=== PATIENT | female | born 1985 | race Caucasian/White ===

== ENCOUNTER 2018-02-07 11:17 | Emergency (ER) | payer BC ==
[2018-02-07 11:29] VITALS: BP 141/86
--- NOTE | 2018-02-07 12:18 | EDM.PDOC ---
ED HPI GENERAL MEDICAL PROBLEM - General Chief Complaint: General Stated Complaint: RASH ON BACK Time Seen by Provider: 02/07/18 11:50 Source of Information: Reports: Patient History Limitations: Reports: No Limitations - History of Present Illness INITIAL COMMENTS - FREE TEXT/NARRATIVE: Patient is a 33-year-old diabetic well known to myself seen with chief complaint of mid back pain at this time she noticed a red area that was oozing pus was seen earlier in the week in the clinic and placed on clindamycin today she has increased pain pressure in the area area was examined revealed an abscess patient is status post amputation below left knee Onset: Gradual Duration: Day(s): (Past 6 days), Getting Worse Location: Reports: Back Quality: Reports: Stabbing, Throbbing Severity: Severe Improves with: Reports: None Worsens with: Reports: None Context: Reports: Other (Illness) Associated Symptoms: Reports: No Other Symptoms Treatments END USER SUPPORT SPECIALIST: Reports: Other (see below) Other Treatments END USER SUPPORT SPECIALIST: hydrocodone 2 tabs at 0500 today Right Back Pain Score (Numeric/FACES): 6 - Related Data Allergies Allergy/AdvReac Type Severity Reaction Status Date / Time No Known Allergies Allergy Verified 02/07/18 11:29 Home Meds: Home Meds Cephalexin [Keflex] 500 mg PO Q6H 10 Days #28 capsule 02/07/18 [Rx] Clindamycin HCl [Cleocin] 300 mg PO TID 02/07/18 [History] Insulin Aspart [NovoLOG] 1,000 unit .XX ASDIRECTED 02/07/18 [History] Levothyroxine [Synthroid] 50 mcg PO DAILY 02/07/18 [History] Lisinopril [Prinivil] 10 mg PO DAILY 02/07/18 [History] Lisinopril/Hydrochlorothiazide [Lisinopril-Hctz 20-25 mg Tab] 1 each PO DAILY [History] metFORMIN [Glucophage XR] 750 mg PO BID 02/07/18 [History] Past Medical History HEENT History: Reports: Impaired Vision Other HEENT History: tooth abscess Cardiovascular History: Reports: Hypertension Neurological History: Reports: Migraines Endocrine/Metabolic History: Reports: Diabetes, Type I, Hypothyroidism, Obesity/ BMI 30+ Dermatologic History: Reports: Other (See Below) Other Dermatologic History: very sensitive skin - Past Surgical History HEENT Surgical History: Reports: Tonsillectomy Other Musculoskeletal Surgeries/Procedures:: left lower leg amputee Social & Family History - Tobacco Use Smoking Status *Q: Former Smoker Years of Tobacco use: 12 Packs/Tins Daily: 1 Used Tobacco, but Quit: Yes Month/Year Tobacco Last Used: 1 Second Hand Smoke Exposure: No - Caffeine Use Caffeine Use: Reports: Soda - Recreational Drug Use Recreational Drug Use: No ED ROS GENERAL - Review of Systems Review Of Systems: See Below Constitutional: Reports: Fever, Chills, Fatigue HEENT: Reports: No Symptoms Respiratory: Reports: No Symptoms Cardiovascular: Reports: No Symptoms Endocrine: Reports: No Symptoms GI/Abdominal: Reports: Abdominal Pain, Decreased Appetite, Nausea. Denies: Anorexia, Constipation, Diarrhea : Reports: No Symptoms Musculoskeletal: Reports: No Symptoms Skin: Reports: Other (Mid back abscess) Neurological: Reports: No Symptoms Psychiatric: Reports: No Symptoms Hematologic/Lymphatic: Reports: No Symptoms ED EXAM, GENERAL - Physical Exam Exam: See Below Exam Limited By: No Limitations General Appearance: Mild Distress Ears: Normal External Exam, Normal Canal, Hearing Grossly Normal, Normal TMs Ear Exam: Bilateral Ear: Auricle Normal, Canal Normal, TM normal Nose: Normal Inspection, Normal Mucosa, No Blood Throat/Mouth: Normal Inspection, Normal Lips, Normal Teeth, Normal Gums, Normal Oropharynx, Normal Voice, No Airway Compromise Head: Atraumatic, Normocephalic Neck: Normal Inspection, Supple, Non-Tender, Full Range of Motion Respiratory/Chest: No Respiratory Distress, Lungs Clear, Normal Breath Sounds, No Accessory Muscle Use, Chest Non-Tender Cardiovascular: Normal Peripheral Pulses, Regular Rate, Rhythm, No Edema, No Gallop, No JVD, No Murmur, No Rub GI/Abdominal: Normal Bowel Sounds, Soft, Non-Tender, No Organomegaly, No Distention, No Abnormal Bruit, No Mass (Female) Exam: Deferred Rectal (Female) Exam: Deferred Back Exam: Other (Abscess mid back right side approximately 8 cm round) Extremities: Normal Inspection, Normal Range of Motion, Non-Tender, Normal Capillary Refill, No Pedal Edema Neurological: Alert, Oriented, CN II-XII Intact, Normal Cognition, Normal Gait, Normal Reflexes, No Motor/Sensory Deficits Psychiatric: Normal Affect, Normal Mood ED GENERAL MEDICAL PROCEDURES - Additional/Other Procedure(s) Other (Free Text) Procedure(s): Procedure incision and drainage Anesthesia 2% lidocaine Estimated blood loss less than 10 mL Wound packed with 4 x 4 Patient is a 33-year-old diabetic who came in with a large abscess on her left mid back patient complains of severe pain, pain 8-10 out of 10 the abscesses was examined and noted to be red and under significant amount pressure at this time it was decided to I&D the abscess. Area was prepped and draped using hexedine oral form 2% lidocaine was infiltrated around the abscess and into the abscess using a 15 blade the abscess was opened and drained large amounts of pus was relieved cultures obtained and wound was irrigated with saline after the wound was irrigated with saline and cleaned with went ahead and packed in with an open 4 x 4 at this time we will dress the wound with 4 x 4 and ABDs patient will be sent home she will be seen again tomorrow in the ER for redressing and packing Course - Vital Signs Last Recorded V/S: Last Vital Signs Temp 98.9 F 02/07/18 11:18 Pulse 120 H 02/07/18 11:18 Resp 16 02/07/18 11:18 BP 141/86 H 02/07/18 11:18 Pulse Ox 96 02/07/18 11:18 - Orders/Labs/Meds Labs: Laboratory Tests 02/07/18 02/07/18 Range/Units 12:50 12:50 WBC 11.9 H (4.0-10.2) K/uL RBC 5.18 H (3.77-5.09) M/uL Hgb 15.5 (11.7-15.5) g/dL Hct 45.2 (34.0-46.0) % MCV 87.3 (84.0-98.0) fL MCH 29.9 (28.2-33.3) pg MCHC 34.3 (31.7-36.0) g/dL RDW 12.6 (11.2-14.1) % Plt Count 195 (150-350) K/uL Neut % (Auto) 71.0 (45.0-80.0) % Lymph % (Auto) 17.2 (10.0-50.0) % Smith % (Auto) 9.2 (2.0-14.0) % Eos % (Auto) 2.4 (0.0-5.0) % Baso % (Auto) 0.2 (0.0-2.0) % Neut # (Auto) 8.44 H (1.40-7.00) K/uL Lymph # (Auto) 2.05 (0.50-3.50) K/uL Smith # (Auto) 1.10 H (0.00-1.00) K/uL Eos # (Auto) 0.29 (0.00-0.50) K/uL Baso # (Auto) 0.02 (0.00-0.20) K/uL Sodium 133 L (136-145) mmol/L Potassium 4.7 (3.5-5.1) mmol/L Chloride 98 (98-107) mmol/L Carbon Dioxide 25.1 (21.0-32.0) mmol/L BUN 19 H (7-18) mg/dL Creatinine 0.86 (0.51-1.17) mg/dL Est Cr Clr Drug Dosing 108.68 mL/min Estimated GFR (MDRD) > 60 mL/min Glucose 316 H* (74-106) mg/dL Calcium 9.3 (8.5-10.1) mg/dL Meds: Medications Discontinued Medications Generic Name Dose Route Start Last Admin Trade Name Freq PRN Reason Stop Dose Admin Cefazolin Sodium 2 gm 02/07/18 13:52 02/07/18 14:01 Ancef IVPUSH 02/07/18 13:53 2 gm ONETIME ONE Administration Fentanyl 100 mcg 02/07/18 12:27 02/07/18 13:15 Sublimaze IVPUSH 02/07/18 12:28 100 mcg ONETIME ONE Administration Lidocaine 20 ml 02/07/18 12:29 02/07/18 13:58 Xylocaine-Mpf 2% INJECT 02/07/18 12:30 10 ml ONETIME ONE Administration Ondansetron HCl 4 mg 02/07/18 14:13 02/07/18 14:18 Zofran Odt PO 02/07/18 14:14 4 mg ONETIME ONE Administration Sodium Chloride 10 ml 02/07/18 14:02 02/07/18 14:03 Saline Flush FLUSH 10 ml ASDIRECTED PRN Administration Keep Vein Open Departure - Departure Time of Disposition: 14:02 Disposition: Home, Self-Care 01 Clinical Impression: Abscess or cellulitis of back - Discharge Information Prescriptions: Cephalexin [Keflex] 500 mg PO Q6H 10 Days #28 capsule Instructions: Skin Abscess, Cellulitis, Adult Referrals: Prateek Angulo MD [Emergency Provider] - Forms: ED Department Discharge Additional Instructions: Return tomorrow 02/08/18 for dressing change of back. Continue clindamycin as ordered. Keflex 500 mg orally 4 times a day. Return sooner if conditions worsen. Care Plan Goals: ED HPI GENERAL MEDICAL PROBLEM - General Chief Complaint: General Stated Complaint: RASH ON BACK Time Seen by Provider: 02/07/18 11:50 Source of Information: Reports: Patient History Limitations: Reports: No Limitations - History of Present Illness INITIAL COMMENTS - FREE TEXT/NARRATIVE: Patient is a 33-year-old diabetic well known to myself seen with chief complaint of mid back pain at this time she noticed a red area that was oozing pus was seen earlier in the week in the clinic and placed on clindamycin today she has increased pain pressure in the area area was examined revealed an abscess patient is status post amputation below left knee Onset: Gradual Duration: Day(s): (Past 6 days), Getting Worse Location: Reports: Back Quality: Reports: Stabbing, Throbbing Severity: Severe Improves with: Reports: None Worsens with: Reports: None Context: Reports: Other (Illness) Associated Symptoms: Reports: No Other Symptoms Treatments END USER SUPPORT SPECIALIST: Reports: Other (see below) Other Treatments END USER SUPPORT SPECIALIST: hydrocodone 2 tabs at 0500 today Right Back Pain Score (Numeric/FACES): 6 - Related Data Allergies Allergy/AdvReac Type Severity Reaction Status Date / Time No Known Allergies Allergy Verified 02/07/18 11:29 Home Meds: Home Meds Clindamycin HCl [Cleocin] 300 mg PO TID 02/07/18 [History] Insulin Aspart [NovoLOG] 1,000 unit .XX ASDIRECTED 02/07/18 [History] Levothyroxine [Synthroid] 50 mcg PO DAILY 02/07/18 [History] Lisinopril [Prinivil] 10 mg PO DAILY 02/07/18 [History] Lisinopril/Hydrochlorothiazide [Lisinopril-Hctz 20-25 mg Tab] 1 each PO DAILY [History] metFORMIN [Glucophage XR] 750 mg PO BID 02/07/18 [History] Past Medical History HEENT History: Reports: Impaired Vision Other HEENT History: tooth abscess Cardiovascular History: Reports: Hypertension Neurological History: Reports: Migraines Endocrine/Metabolic History: Reports: Diabetes, Type I, Hypothyroidism, Obesity/ BMI 30+ Dermatologic History: Reports: Other (See Below) Other Dermatologic History: very sensitive skin - Past Surgical History HEENT Surgical History: Reports: Tonsillectomy Other Musculoskeletal Surgeries/Procedures:: left lower leg amputee Social & Family History - Tobacco Use Smoking Status *Q: Former Smoker Years of Tobacco use: 12 Packs/Tins Daily: 1 Used Tobacco, but Quit: Yes Month/Year Tobacco Last Used: 1 Second Hand Smoke Exposure: No - Caffeine Use Caffeine Use: Reports: Soda - Recreational Drug Use Recreational Drug Use: No ED ROS GENERAL - Review of Systems Review Of Systems: See Below Constitutional: Reports: Fever, Chills, Fatigue HEENT: Reports: No Symptoms Respiratory: Reports: No Symptoms Cardiovascular: Reports: No Symptoms Endocrine: Reports: No Symptoms GI/Abdominal: Reports: Abdominal Pain, Decreased Appetite, Nausea. Denies: Anorexia, Constipation, Diarrhea : Reports: No Symptoms Musculoskeletal: Reports: No Symptoms Skin: Reports: Other (Mid back abscess) Neurological: Reports: No Symptoms Psychiatric: Reports: No Symptoms Hematologic/Lymphatic: Reports: No Symptoms ED EXAM, GENERAL - Physical Exam Exam Limited By: No Limitations General Appearance: Mild Distress Ears: Normal External Exam, Normal Canal, Hearing Grossly Normal, Normal TMs Ear Exam: Bilateral Ear: Auricle Normal, Canal Normal, TM normal Nose: Normal Inspection, Normal Mucosa, No Blood Throat/Mouth: Normal Inspection, Normal Lips, Normal Teeth, Normal Gums, Normal Oropharynx, Normal Voice, No Airway Compromise Head: Atraumatic, Normocephalic Neck: Normal Inspection, Supple, Non-Tender, Full Range of Motion Respiratory/Chest: No Respiratory Distress, Lungs Clear, Normal Breath Sounds, No Accessory Muscle Use, Chest Non-Tender Cardiovascular: Normal Peripheral Pulses, Regular Rate, Rhythm, No Edema, No Gallop, No JVD, No Murmur, No Rub GI/Abdominal: Normal Bowel Sounds, Soft, Non-Tender, No Organomegaly, No Distention, No Abnormal Bruit, No Mass (Female) Exam: Deferred Rectal (Female) Exam: Normal Exam, Normal Rectal Tone Back Exam: Other (Abscess mid back right side approximately 8 cm round) Extremities: Normal Inspection, Normal Range of Motion, Non-Tender, Normal Capillary Refill, No Pedal Edema Neurological: Alert, Oriented, CN II-XII Intact, Normal Cognition, Normal Gait, Normal Reflexes, No Motor/Sensory Deficits Psychiatric: Normal Affect, Normal Mood Course - Vital Signs Last Recorded V/S: Last Vital Signs Temp 98.9 F 02/07/18 11:18 Pulse 120 H 02/07/18 11:18 Resp 16 02/07/18 11:18 BP 141/86 H 02/07/18 11:18 Pulse Ox 96 02/07/18 11:18 - Orders/Labs/Meds Orders: Active Orders 24 hr Category Date Time Status BASIC METABOLIC PANEL,BMP [CHEM] Stat Lab 02/07/18 12:28 Ordered CULTURE WOUND [RM] Stat Lab 02/07/18 12:26 Ordered Labs: Laboratory Tests 02/07/18 Range/Units 12:50 WBC 11.9 H (4.0-10.2) K/uL RBC 5.18 H (3.77-5.09) M/uL Hgb 15.5 (11.7-15.5) g/dL Hct 45.2 (34.0-46.0) % MCV 87.3 (84.0-98.0) fL MCH 29.9 (28.2-33.3) pg MCHC 34.3 (31.7-36.0) g/dL RDW 12.6 (11.2-14.1) % Plt Count 195 (150-350) K/uL Neut % (Auto) 71.0 (45.0-80.0) % Lymph % (Auto) 17.2 (10.0-50.0) % Smith % (Auto) 9.2 (2.0-14.0) % Eos % (Auto) 2.4 (0.0-5.0) % Baso % (Auto) 0.2 (0.0-2.0) % Neut # (Auto) 8.44 H (1.40-7.00) K/uL Lymph # (Auto) 2.05 (0.50-3.50) K/uL Smith # (Auto) 1.10 H (0.00-1.00) K/uL Eos # (Auto) 0.29 (0.00-0.50) K/uL Baso # (Auto) 0.02 (0.00-0.20) K/uL Meds: Medications Discontinued Medications Generic Name Dose Route Start Last Admin Trade Name Freq PRN Reason Stop Dose Admin Fentanyl 100 mcg 02/07/18 12:27 Sublimaze IVPUSH 02/07/18 12:28 ONETIME ONE Lidocaine 20 ml 02/07/18 12:29 Xylocaine-Mpf 2% INJECT 02/07/18 12:30 ONETIME ONE Departure - Departure Clinical Impression: Abscess or cellulitis of back - Discharge Information Referrals: Prateek Angulo MD [Primary Care Provider] - Forms: ED Department Discharge - My Orders Last 24 Hours: My Active Orders 02/07/18 12:26 CULTURE WOUND [RM] Stat 02/07/18 12:28 BASIC METABOLIC PANEL,BMP [CHEM] Stat - Assessment/Plan Last 24 Hours: My Active Orders 02/07/18 12:26 CULTURE WOUND [RM] Stat 02/07/18 12:28 BASIC METABOLIC PANEL,BMP [CHEM] Stat I&D of abscess with packing
[2018-02-07] MEDS ORDERED: fentaNYL 100 MCG/2 ML SDV IVPUSH ONE (12:27)
[2018-02-07] MEDS ORDERED: Lidocaine 2% 5 ML SDV INJECT ONE (12:29)
[2018-02-07 13:12] LABS: CHLORIDE,CL 98 mmol/L (98-107); SODIUM,NA 133 mmol/L (136-145)
[2018-02-07] MEDS ORDERED: ceFAZolin 1 GM Vial IVPUSH ONE (13:52)
[2018-02-07] MEDS ORDERED: Lidocaine 2% 5 ML SDV ONE (13:58)
[2018-02-07] MEDS ORDERED: Sodium Chloride 0.9% 10 ML Syringe FLUSH PRN (14:02)
[2018-02-07] MEDS ORDERED: Ondansetron 4 MG Tab.DIS PO ONE (14:13)
== END 2018-02-07 14:30 | disposition home or self-care (01) ==
LOC: LL.ED 11:17
DX: L02.212 Cutaneous abscess of back [any part, except buttock and flank] (principal); E10.9 Type 1 diabetes mellitus without complications; E03.9 Hypothyroidism, unspecified; I10 Essential (primary) hypertension; Z87.891 Personal history of nicotine dependence
CPT/HCPCS: 10060; 36415; 80048; 85025; 87070; 87077; 87186; 96374; 96375; 99283; A9270; J0690; J3010; J7050

== ENCOUNTER 2019-06-18 20:34 | Emergency (ER) | payer BC, MEDICARE ==
--- NOTE | 2019-06-18 20:44 | EDM.PDOC ---
ED HPI GENERAL MEDICAL PROBLEM - General Chief Complaint: ENT Problem Stated Complaint: vision changes Time Seen by Provider: 06/18/19 20:35 Source of Information: Reports: Patient, Old Records ([facility] EMR. No paper hospital chart available.) History Limitations: Reports: No Limitations - History of Present Illness INITIAL COMMENTS - FREE TEXT/NARRATIVE: She drove herself to the emergency room via private automobile for evaluation of progressive left eye visual changes since about 10 AM this morning. Note the patient began experiencing some left eye floaters with known previous history of diabetic retinopathy without previous laser treatments. During the course of the day the floaters to increase in frequency with sudden onset of ear left eye vision loss at about 18:00 hours this evening. No history of recent headaches, visual changes, diplopia, change in mental status, or other change in neurological status. The patient denies any chest pain/pressure, heart flutter, dizziness, orthostasis, orthopnea, diaphoresis, paresthesias, recent decreased exercise tolerance, or any other anginal-type symptoms. No recent history of abdominal pain, heartburn, nausea, diarrhea, melena, gross hematochezia, or any food intolerance, including fatty foods, etc.. She is currently being treated for bronchitis and sinusitis and has been compliant with her antibiotic therapy and inhalers. She does have a persistent mild nonproductive cough with no significant dyspnea, distress, etc. and symptoms much improved with only 3 days remaining of her antibiotic therapy. She denies any eye pain or discomfort. Her vision apparently worsened suddenly after a coughing episode. Onset: Today, Sudden, Other (As above) Onset Date: 06/18/19 Onset Time: 18:00 Duration: Getting Worse Location: Reports: Other (No pain) Severity: Severe Improves with: Reports: None Worsens with: Reports: None Context: Reports: Other (As above). Denies: Sick Contact, Trauma Associated Symptoms: Reports: Cough. 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) (None) - Related Data Allergies Allergy/AdvReac Type Severity Reaction Status Date / Time No Known Allergies Allergy Verified 06/18/19 21:36 Home Meds: Home Meds Insulin Aspart [NovoLOG] 1,000 unit .XX ASDIRECTED 02/07/18 [History] Levothyroxine [Synthroid] 75 mcg PO DAILY 02/07/18 [History] Lisinopril/Hydrochlorothiazide [Lisinopril-Hctz 20-25 mg Tab] 1 each PO DAILY [History] metFORMIN [Glucophage XR] 750 mg PO BID 02/07/18 [History] Albuterol/Ipratropium [DuoNeb 3.0-0.5 MG/3 ML] 3 ml NEB Q4H PRN 06/18/19 [ History] Amoxicillin/Clavulanate K [Augmentin 875-125 MG] 1 tab PO BID 06/18/19 [History] guaiFENesin/Codeine Phosphate [Coditussin AC Liquid] 10 ml PO Q4HR PRN 06/18/19 [History] Past Medical History HEENT History: Reports: Impaired Vision, Other (See Below) Other HEENT History: Diabetic retinopathy Cardiovascular History: Reports: Arrhythmia, Hypertension, PVD, Other (See Below ) Other Cardiovascular History: Diabetic peripheral vascular disease requiring amputations as below. Recurrent mild sinus tachycardia not currently under therapy. Respiratory History: Reports: Asthma, Bronchitis, Recurrent Neurological History: Reports: Migraines Endocrine/Metabolic History: Reports: Diabetes, Type I, Hypothyroidism, IDDM, Obesity/BMI 30+ Dermatologic History: Reports: Other (See Below) Other Dermatologic History: very sensitive skin - Past Surgical History HEENT Surgical History: Reports: Oral Surgery, Tonsillectomy, Other (See Below) Other HEENT Surgeries/Procedures: Multiple tooth extractions Musculoskeletal Surgical History: Reports: Amputation Other Musculoskeletal Surgeries/Procedures:: Left [id number] amputation secondary to diabetic peripheral vascular disease. Multiple amputations of the right toes and also partial amputation of the right foot secondary to her diabetes as above Social & Family History - Tobacco Use Smoking Status *Q: Former Smoker Tobacco Use Within Last Twelve Months: No Years of Tobacco use: 12 Packs/Tins Daily: 1 Packs/Tins Daily Comment: Smoked between ages 16 and 28. Used Tobacco, but Quit: Yes Smoking Cessation Information Provided To Patient: No Second Hand Smoke Exposure: No Second Hand Smoke Education Provided: No - Caffeine Use Caffeine Use: Reports: Soda - Living Situation & Occupation Living situation: Reports: (No children) ED ROS GENERAL - Review of Systems Review Of Systems: ROS reveals no pertinent complaints other than HPI. ED EXAM, GENERAL - Physical Exam Exam: See Below Exam Limited By: No Limitations General Appearance: Alert, WD/WN, No Apparent Distress Eye Exam: Left Eye: Vision Changes (Corrected vision with glasses right sided 20 /20 and left-sided 20/200), Other (Fundal exam shows mostly left-sided subretinal hemorrhage ) Ears: Normal External Exam, Normal Canal, Hearing Grossly Normal, Normal TMs Nose: Normal Inspection, Normal Mucosa, No Blood Throat/Mouth: Normal Inspection, Normal Lips, Normal Teeth (Occasional missing teeth), Normal Gums, Normal Oropharynx, Normal Voice, No Airway Compromise Head: Atraumatic, Normocephalic. No: Facial Swelling, Facial Tenderness, Sinus Tenderness Neck: Normal Inspection, Supple, Non-Tender, Full Range of Motion. No: Lymphadenopathy (L), Lymphadenopathy (R), Thyromegaly Respiratory/Chest: No Respiratory Distress, No Accessory Muscle Use, Chest Non- Tender, Rhonchi (Occasional bilateral), Wheezing (Occasional bilateral). No: Rales, Pleural Rub, Retractions Cardiovascular: Normal Peripheral Pulses, No Edema, No Gallop, No JVD, No Murmur , No Rub, Tachycardia (Regular rhythm). No: Gallop/S3, Gallop/S4, Friction Rub Peripheral Pulses: 2+: Radial (L), Radial (R) GI/Abdominal: Normal Bowel Sounds, Soft, Non-Tender, No Organomegaly, No Distention, No Abnormal Bruit, No Mass, Other (Obese). No: Guarding (Female) Exam: Deferred Rectal (Female) Exam: Deferred Back Exam: Normal Inspection, Full Range of Motion. No: CVA Tenderness (L), CVA Tenderness (R), Muscle Spasm Extremities: Other (Left leg below the knee prosthesis with corrective shoe on the right foot) Neurological: Alert, Oriented, CN II-XII Intact, Normal Cognition, Normal Gait Psychiatric: Normal Affect, Normal Mood Skin Exam: Warm, Dry, Intact, Normal Color, No Rash. No: Diaphoretic, Wound/ Incision Lymphatic: No Adenopathy Course - Vital Signs Last Recorded V/S: Last Vital Signs Temp 36.6 C 06/18/19 20:36 Pulse 108 H 06/18/19 21:28 Resp 20 06/18/19 20:36 BP 155/78 H 06/18/19 21:28 Pulse Ox 98 06/18/19 20:36 Vital Signs - 24 hr 06/18/19 06/18/19 20:36 21:28 Temperature [ 36.6 C Temporal] Pulse, 108 H Peripheral Pulse, 114 H Peripheral [ Pulse Oximetry] Respiratory 20 Rate Blood Pressure 155/78 H Blood Pressure 169/106 H [Left Upper Arm ] O2 Sat by Pulse 98 Oximetry - Orders/Labs/Meds Orders: Active Orders 24 hr Category Date Time Status Cardiac Monitoring [RC] . DIRECTED Care 06/18/19 20:51 Active Peripheral IV Care [RC] . DIRECTED Care 06/18/19 20:52 Active Sodium Chloride 0.9% [Saline Flush] Med 06/18/19 20:51 Active 10 ml FLUSH ASDIRECTED PRN Obtain Past Medical Record [OM.PC] Routine Oth 06/18/19 20:51 Active Peripheral IV Insertion Adult [OM.PC] Routine Oth 06/18/19 20:51 Ordered Medication Orders Sodium Chloride (Saline Flush) 10 ml FLUSH ASDIRECTED PRN PRN Reason: Keep Vein Open Last Admin: 06/18/19 21:28 Dose: 10 ml Labs: Laboratory Tests 06/18/19 06/18/19 06/18/19 Range/Units 21:05 21:05 21:05 WBC 8.3 (4.0-10.2) K/uL RBC 4.83 (3.77-5.09) M/uL Hgb 15.1 (11.7-15.5) g/dL Hct 43.6 (34.0-46.0) % MCV 90.3 (84.0-98.0) fL MCH 31.3 (28.2-33.3) pg MCHC 34.6 (31.7-36.0) g/dL RDW 14.3 H (11.2-14.1) % Plt Count 205 (150-350) K/uL Neut % (Auto) 60.6 (45.0-80.0) % Lymph % (Auto) 29.7 (10.0-50.0) % Cross % (Auto) 5.8 (2.0-14.0) % Eos % (Auto) 3.5 (0.0-5.0) % Baso % (Auto) 0.4 (0.0-2.0) % Neut # (Auto) 5.05 (1.40-7.00) K/uL Lymph # (Auto) 2.47 (0.50-3.50) K/uL Cross # (Auto) 0.48 (0.00-1.00) K/uL Eos # (Auto) 0.29 (0.00-0.50) K/uL Baso # (Auto) 0.03 (0.00-0.20) K/uL PT 9.4 L (9.5-12.0) SEC INR 0.9 APTT 25.2 (21.0-31.3) SEC Sodium 139 (136-145) mmol/L Potassium 3.9 (3.5-5.1) mmol/L Chloride 102 (98-107) mmol/L Carbon Dioxide 27.1 (21.0-32.0) mmol/L BUN 17 (7-18) mg/dL Creatinine 0.81 (0.51-1.17) mg/dL Est Cr Clr Drug Dosing 114.29 mL/min Estimated GFR (MDRD) > 60 mL/min Glucose 261 H (74-106) mg/dL Calcium 9.3 (8.5-10.1) mg/dL Total Bilirubin 0.2 (0.2-1.0) mg/dL AST 20 (15-37) U/L ALT 36 (12-78) U/L Alkaline Phosphatase 98 (46-116) IU/L Total Protein 6.9 (6.4-8.2) g/dL Albumin 3.1 L (3.4-5.0) g/dL TSH, Ultra Sensitive (0.358-3.740) mIU/mL 06/18/19 Range/Units 21:05 WBC (4.0-10.2) K/uL RBC (3.77-5.09) M/uL Hgb (11.7-15.5) g/dL Hct (34.0-46.0) % MCV (84.0-98.0) fL MCH (28.2-33.3) pg MCHC (31.7-36.0) g/dL RDW (11.2-14.1) % Plt Count (150-350) K/uL Neut % (Auto) (45.0-80.0) % Lymph % (Auto) (10.0-50.0) % Cross % (Auto) (2.0-14.0) % Eos % (Auto) (0.0-5.0) % Baso % (Auto) (0.0-2.0) % Neut # (Auto) (1.40-7.00) K/uL Lymph # (Auto) (0.50-3.50) K/uL Cross # (Auto) (0.00-1.00) K/uL Eos # (Auto) (0.00-0.50) K/uL Baso # (Auto) (0.00-0.20) K/uL PT (9.5-12.0) SEC INR APTT (21.0-31.3) SEC Sodium (136-145) mmol/L Potassium (3.5-5.1) mmol/L Chloride (98-107) mmol/L Carbon Dioxide (21.0-32.0) mmol/L BUN (7-18) mg/dL Creatinine (0.51-1.17) mg/dL Est Cr Clr Drug Dosing mL/min Estimated GFR (MDRD) mL/min Glucose (74-106) mg/dL Calcium (8.5-10.1) mg/dL Total Bilirubin (0.2-1.0) mg/dL AST (15-37) U/L ALT (12-78) U/L Alkaline Phosphatase (46-116) IU/L Total Protein (6.4-8.2) g/dL Albumin (3.4-5.0) g/dL TSH, Ultra Sensitive 3.860 H (0.358-3.740) mIU/mL Meds: Medications Generic Name Dose Route Start Last Admin Trade Name Freq PRN Reason Stop Dose Admin Sodium Chloride 10 ml 06/18/19 20:51 06/18/19 21:28 Saline Flush FLUSH 10 ml ASDIRECTED PRN Administration Keep Vein Open Discontinued Medications Generic Name Dose Route Start Last Admin Trade Name Freq PRN Reason Stop Dose Admin Metoprolol Tartrate 5 mg 06/18/19 20:51 06/18/19 21:28 Lopressor IVPUSH 06/18/19 20:52 5 mg ONETIME ONE Administration - Radiology Interpretation Free Text/Narrative:: monitoring coordinator shows sinus tachycardia in the 110s with improvement to the 100s prior to discharge Departure - Departure Time of Disposition: 22:20 Disposition: Home, Self-Care 01 Condition: Fair Clinical Impression: IDDM (insulin dependent diabetes mellitus), Hypothyroidism (acquired), Hypoalbuminemia, Tachycardia Hypertension Qualifiers: Hypertension type: essential hypertension Qualified Code(s): I10 - Essential ( primary) hypertension Retinal hemorrhage Qualifiers: Laterality: left Qualified Code(s): H35.62 - Retinal hemorrhage, left eye Asthma Qualifiers: Asthma severity: mild Asthma persistence: intermittent Asthma complication type : uncomplicated Qualified Code(s): J45.20 - Mild intermittent asthma, uncomplicated - Discharge Information *PRESCRIPTION DRUG MONITORING PROGRAM REVIEWED*: Not Applicable *COPY OF PRESCRIPTION DRUG MONITORING REPORT IN PATIENT PETRA: Not Applicable Instructions: Retinal Detachment, Metoprolol injection, Hypertension Referrals: Prisca Valdes PLANT TECHNICIAN [Primary Care Provider] - Forms: ED Department Discharge Additional Instructions: 1. Follow-up with Dr. Baron at 9 AM tomorrow morning at her office on [address] [place] [address]. 2. Continue to observe your blood pressures and pulses closely by your regular provider with consideration of possible low-dose beta leti therapy 3. Otherwise, Followup with your regular provider in 10-14 days as directed. Bring these discharge instructions with you to that visit. 4. Immediately after this visit verify that your cellular telephone's voicemail has been activated and is empty. Also verify that your home telephone 's answering machine is operating properly and has space to receive messages. Note that it is sometimes necessary for us to be able to contact you at a later date to discuss your medical care. 5. Please remember that we are ALWAYS here for you and want to answer any questions you may have. Feel free to call the hospital any time and we call you back EDIN. - Problem List & Annotations (1) Retinal hemorrhage SNOMED Code(s): 91575003 Code(s): H35.60 - RETINAL HEMORRHAGE, UNSPECIFIED EYE Status: Acute Priority: High Current Visit: Yes Onset Date: 06/18/19 Annotation/Comment: : Telephone consultation at 20:[address] Bethany Baron, on-call diesel truck mechanic for [facility]. She agrees to evaluate the patient at 9 AM tomorrow morning her clinic with no further recommendations given. Patient may have her medications and eat prior to this appointment. Note known previous history of mild diabetic retinopathy with no previous laser therapy, etc. Qualifiers: Laterality: left Qualified Code(s): H35.62 - Retinal hemorrhage, left eye (2) Hypertension SNOMED Code(s): 53561982 Code(s): I10 - ESSENTIAL (PRIMARY) HYPERTENSION Status: Chronic Priority : Medium Current Visit: Yes Annotation/Comment:: Blood pressure somewhat elevated in the emergency room, however improved with IV Lopressor. Note previous history of chronic intermittent sinus tachycardia. Patient may benefit from low-dose beta leti therapy despite her IDDM. Continue to observe closely by her regular providers. Qualifiers: Hypertension type: essential hypertension Qualified Code(s): I10 - Essential (primary) hypertension (3) Tachycardia SNOMED Code(s): 9786817 Code(s): R00.0 - TACHYCARDIA, UNSPECIFIED Status: Chronic Priority: High Current Visit: Yes Annotation/Comment:: As above (4) Asthma SNOMED Code(s): 287831259 Code(s): J45.909 - UNSPECIFIED ASTHMA, UNCOMPLICATED Status: Chronic Priority: Medium Current Visit: Yes Annotation/Comment:: Recent exacerbation with current antibiotic therapy for bronchitis and sinusitis by patient history. Symptoms improved as above. Continue close follow-up by regular provider. Qualifiers: Asthma severity: mild Asthma persistence: intermittent Asthma complication type: uncomplicated Qualified Code(s): J45.20 - Mild intermittent asthma, uncomplicated (5) Hypoalbuminemia SNOMED Code(s): 378848188 Code(s): E88.09 - [facility] DISORDERS OF PLASMA-PROTEIN METABOLISM, NEC Status: Acute Priority: Medium Current Visit: Yes Onset Date: 06/18/19 Annotation/Comment:: Continue to observe closely by her regular provider with consideration of protein supplements depending on her clinical course. Weight Loss in moderation is advisable secondary to her IDDM and obesity. (6) Hypothyroidism (acquired) SNOMED Code(s): 186579626 Code(s): E03.9 - HYPOTHYROIDISM, UNSPECIFIED Status: Chronic Priority: Medium Current Visit: Yes Annotation/Comment:: TSH is still mildly elevated with her thyroid supplementation increased about 2 weeks ago by patient history. Recommend repeat TSH within the next 24 weeks. 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 Note current insulin pump therapy. Patient states her Accu -Cheks at home have been averaging in the 100s. - Problem List Review Problem List Initiated/Reviewed/Updated: Yes - My Orders Last 24 Hours: My Active Orders 06/18/19 20:51 Cardiac Monitoring [RC] . DIRECTED Sodium Chloride 0.9% [Saline Flush] 10 ml FLUSH ASDIRECTED PRN Obtain Past Medical Record [OM.PC] Routine Peripheral IV Insertion Adult [OM.PC] Routine 06/18/19 20:52 Peripheral IV Care [RC] . DIRECTED - Assessment/Plan Last 24 Hours: My Active Orders 06/18/19 20:51 Cardiac Monitoring [RC] . DIRECTED Sodium Chloride 0.9% [Saline Flush] 10 ml FLUSH ASDIRECTED PRN Obtain Past Medical Record [OM.PC] Routine Peripheral IV Insertion Adult [OM.PC] Routine 06/18/19 20:52 Peripheral IV Care [RC] . DIRECTED Assessment:: As above Plan: As above. Extensive precautions were given to the patient, who is in agreement with the treatment plan. See Patient Instructions for further treatment and plan.
[2019-06-18] MEDS ORDERED: Sodium Chloride 0.9% 10 ML Syringe FLUSH PRN (20:51)
[2019-06-18] MEDS ORDERED: Metoprolol Tartrate 5 MG/5 ML SDV IVPUSH ONE (20:51)
[2019-06-18 21:40] LABS: CHLORIDE,CL 102 mmol/L (98-107); SODIUM,NA 139 mmol/L (136-145)
[2019-06-19 02:44] VITALS: BP 120/62; PULSE 93
== END 2019-06-18 22:15 | disposition home or self-care (01) ==
LOC: LL.ED 20:34
DX: H35.62 Retinal hemorrhage, left eye (principal); I10 Essential (primary) hypertension; E03.9 Hypothyroidism, unspecified; E88.09 Other disorders of plasma-protein metabolism, not elsewhere classified; R00.0 Tachycardia, unspecified; J45.20 Mild intermittent asthma, uncomplicated; E10.9 Type 1 diabetes mellitus without complications; Z79.899 Other long term (current) drug therapy; Z87.891 Personal history of nicotine dependence
CPT/HCPCS: 36415; 80053; 84443; 85025; 85610; 85730; 96374; 99284; J3490

== ENCOUNTER 2023-08-19 17:48 | Emergency (ER) | payer BC, MEDICARE ==
[2023-08-19] MEDS: Aspirin 81 MG Tab.Chew PO ONE (17:57)
[2023-08-19 18:29] LABS: PROTHROMBIN TIME 9.6 SEC (9.0-11.1); PTT,PARTIAL THROMBOPLSTIN TIME 25.2 SEC (23.6-29.8)
[2023-08-19 18:36] VITALS: PULSE 103
[2023-08-19 18:39] VITALS: BP 143/84
[2023-08-19] MEDS: Heparin Sodium 5,000 Units/ML Vial IVPUSH ONE ×2 (18:40→18:48)
[2023-08-19] MEDS: Heparin Sodium/0.45% NaCl 500 ML IV SCH (18:41)
[2023-08-19] MEDS: Heparin Sodium 5,000 Units/ML Vial ONE (18:48)
[2023-08-19] MEDS ORDERED: Sodium Chloride 0.9% 10 ML Syringe FLUSH PRN (20:34)
== END 2023-08-19 18:50 ==
LOC: LL.ED 17:48
DX: R79.89 Other specified abnormal findings of blood chemistry (principal); R06.02 Shortness of breath; I10 Essential (primary) hypertension; J45.909 Unspecified asthma, uncomplicated; E10.319 Type 1 diabetes mellitus with unspecified diabetic retinopathy without macular edema; E03.9 Hypothyroidism, unspecified; R50.9 Fever, unspecified; R91.8 Other nonspecific abnormal finding of lung field; E66.9 Obesity, unspecified; Z79.899 Other long term (current) drug therapy; Z20.822 Contact with and (suspected) exposure to COVID-19; Z79.4 Long term (current) use of insulin; Z68.39 Body mass index [BMI] 39.0-39.9, adult
CPT/HCPCS: 0241U; 36415; 71046; 71275; 80048; 83880; 84484; 85025; 85379; 85610; 85730; 86140; 93005; 93010; 96374; 96376; 99284; 99285-25; A9270-GY; J1644; Q9967

== ENCOUNTER 2023-08-28 20:13 | Emergency (ER) | payer BC, MEDICARE ==
[2023-08-28] MEDS ORDERED: Ondansetron 4 MG/2 ML SDV ONE (20:25)
[2023-08-28] MEDS ORDERED: Norepinephrine Bit/D5W Premix 250 ML ONE (20:27)
[2023-08-28 20:35] VITALS: BP 80/49; PULSE 111
[2023-08-28 20:41] LABS: PROTHROMBIN TIME 9.9 SEC (9.0-11.1)
[2023-08-28 20:50] LABS: HEMATOCRIT 25.7 % (34.0-46.0); HEMOGLOBIN 8.5 g/dL (11.7-15.5); MEAN CORPUSCULAR VOLUME 90.8 fL (84.0-98.0); RED BLOOD CELL COUNT 2.83 M/uL (3.77-5.09); WHITE BLOOD CELL COUNT,WBC 20.2 K/uL (4.0-10.2)
[2023-08-28 20:51] LABS: ALBUMIN 2.8 g/dL (3.4-5.0); ALKALINE PHOSPHATASE 97 IU/L (46-116); ASPARTATE AMNIOTRANSFERASE,AST 13 U/L (15-37); BASOPHILS ABSOLUTE AUTO 0.04 K/uL (0.00-0.20); BASOPHILS PERCENT AUTO 0.2 % (0.0-2.0); BILIRUBIN TOTAL 0.2 mg/dL (0.2-1.0); BLOOD UREA NITROGEN,BUN 33 mg/dL (7-18); CALCIUM 8.7 mg/dL (8.5-10.1); CARBON DIOXIDE,CO2 15.9 mmol/L (21.0-32.0); CHLORIDE,CL 103 mmol/L (98-107); EOSINOPHILS ABSOLUTE AUTO 0.03 K/uL (0.00-0.50); EOSINOPHILS PERCENT AUTO 0.1 % (0.0-5.0); GLUCOSE RANDOM 397 mg/dL (70-99); LYMPHOCYTES ABSOLUTE AUTO 3.91 K/uL (0.50-3.50); LYMPHOCYTES PERCENT AUTO 19.4 % (10.0-50.0); MEAN CORPUSCULAR HGB CONC 33.1 g/dL (31.7-36.0); NEUTROPHILS PERCENT AUTO 77.3 % (45.0-80.0); PLATELET COUNT,PLT 460 K/uL (150-350); POTASSIUM,K 4.9 mmol/L (3.5-5.1); PROTEIN TOTAL,TP 5.6 g/dL (6.4-8.2); RED CELL DISTRIBUTION WIDTH 14.2 % (11.2-14.1); SODIUM,NA 137 mmol/L (136-145)
[2023-08-28 20:57] LABS: CREATININE 3.15 mg/dL (0.51-1.17); ESTIMATED GFR 18 mL/min (>=60)
[2023-08-28 22:47] LABS: ALANINE AMINOTRANSFERASE,ALT 16 U/L (12-78)
== END 2023-08-28 21:35 ==
LOC: LL.ED 20:13
DX: I25.9 Chronic ischemic heart disease, unspecified (principal); R11.2 Nausea with vomiting, unspecified; N93.9 Abnormal uterine and vaginal bleeding, unspecified; D62 Acute posthemorrhagic anemia; R57.1 Hypovolemic shock; I10 Essential (primary) hypertension; E03.9 Hypothyroidism, unspecified; E66.9 Obesity, unspecified; E10.9 Type 1 diabetes mellitus without complications; J45.909 Unspecified asthma, uncomplicated; Z79.4 Long term (current) use of insulin; Z79.899 Other long term (current) drug therapy
CPT/HCPCS: 36415; 36430; 71045; 80053; 83605; 84484; 85025; 85610; 86850; 86900; 86901; 86920; 86922; 93005; 96365; 99291; P9016; 93010; 99284

== ENCOUNTER 2024-10-19 15:12 | Emergency (ER) | payer BC, MEDICARE ==
[2024-10-19 15:40] VITALS: PULSE 93
[2024-10-19 15:54] VITALS: BP 122/81
== END 2024-10-19 16:18 | disposition home or self-care (01) ==
LOC: LL.ED 15:12
DX: S40.011A Contusion of right shoulder, initial encounter (principal); I10 Essential (primary) hypertension; E10.319 Type 1 diabetes mellitus with unspecified diabetic retinopathy without macular edema; E03.9 Hypothyroidism, unspecified; E66.9 Obesity, unspecified; Z79.899 Other long term (current) drug therapy; Z79.4 Long term (current) use of insulin; Z79.890 Hormone replacement therapy; Z79.82 Long term (current) use of aspirin; W00.0XXA Fall on same level due to ice and snow, initial encounter
CPT/HCPCS: 73030-RT; 99283